=== PATIENT | female | born 1950 | race Caucasian/White ===

== ENCOUNTER 2017-02-09 18:42 | Emergency (ER) | payer OTHER ==
[~2017-02-09] VITALS: Ht 162.6 cm; Wt 123.2 kg
[~2017-02-09 18:42] MED LIST: ADVAIR HFA120 INHAL1 IH; ALBUTEROL SULF8.5 GM IH; CLONAZEPAM1 MG PO; COLACE100 MG PO; COMBIVENT INH14.7 GM IH; Colace PO; Effexor PO; GEMFIBROZIL600 MG PO; Glucophage PO; LANTUS 10100 UNITS/ SC; LANTUS 3 M100 UNITS1 SC; LOPID600 MG PO; METFORMIN HCL500 M4 PO; NEURONTIN300 MG PO; Neurontin PO; PREDNISONE10 MG PO; PRILOSEC20 MG PO; SYMBICORT60 INHALAT IH; TRAZODONE HCL50 MG PO; VENLAFAXINE HC100 MG PO; ZESTRIL10 MG PO; ZITHROMAX Z-PA250 MG PO; ZOCOR20 MG PO
[2017-02-09 18:53] VITALS: BP 153/88
== END 2017-02-09 20:52 | disposition left against medical advice (07) ==
LOC: EME 18:42
DX: M54.9 Dorsalgia, unspecified (principal); Z53.21 Procedure and treatment not carried out due to patient leaving prior to being seen by health care provider